=== PATIENT | female | born 1990 | race Caucasian/White ===

== ENCOUNTER 2017-04-10 10:32 | Emergency (ER) | payer OTHER ==
[2017-04-10] MEDS ORDERED: IBUPROFEN 800 MG TAB PO ONE (10:42)
[2017-04-10 10:47] VITALS: BP 115/67; PULSE 86; RESP 18; TEMP 99; O2SAT 97
--- NOTE | 2017-04-10 11:01 | EDPHY ---
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 Denies any falls or traumatic injuries. Has had a persistent bilateral low back pain since. No numbness or weakness. No difficulty ambulating. No urinary problems. History of prior back injuries. ROS: 10 point Review of Systems is negative except as noted in the HPI. PMH: Denies Social History: No smoking, no alcohol, no recreational drug use Family History: non-contributory Physical Exam: Gen: Awake, Alert, No Distress HEENT: Nose: no rhinorrhea Eyes: PERRLA, EOMI Mouth: Moist mucosa Neck: Supple, no JVD Chest: nontender, lungs clear to auscultation Heart: S1, S2 normal, no murmur Abd: Soft, non-tender, no guarding Back: no CVA tenderness, no midline tenderness bilateral paraspinal muscle spasm Ext: no edema, non-tender Skin: no rash Neuro: CN II-XII intact, Sensation grossly intact, Strength 5/5 in bilateral upper and lower extremities, 2+ deep tendon reflexes - Personal History LMP (Females 10-55): Now Current Tetanus/Diphtheria Vaccine: Yes - Medical/Surgical History Hx Asthma: No Hx Chronic Respiratory Disease: No Hx Diabetes: No Hx Cardiac Disease: No Hx Renal Disease: No Hx Cirrhosis: No Hx Alcoholism: No Hx HIV/AIDS: No Hx Splenectomy or Spleen Trauma: No - Social History Smoking Status: Never smoked Constitutional: Initial Vital Signs Temperature (C) 37.2 C 04/10/17 10:36 Heart Rate 86 04/10/17 10:36 Respiratory Rate 18 04/10/17 10:36 Blood Pressure 115/67 04/10/17 10:36 O2 Sat (%) 97 04/10/17 10:36 O2 Delivery Mode Room Air Allergies/Adverse Reactions: acetaminophen Allergy (Verified 04/10/17 10:40) erythromycin base Allergy (Verified 04/10/17 10:40) Home Medications: Medication Instructions Recorded NK [No Known Home Meds] 04/10/17 Medical Decision Making ED Course/Re-evaluation: 27-year-old with musculoskeletal low back pain. No red flags for acute neurologic injury or infection. Will discharge with NSAIDs, back exercises, ice , follow up with workman's Comp. - Data Points Medications Given: Discontinued Medications Ibuprofen (Motrin) 800 mg PO EDNOW ONE Stop: 04/10/17 10:43 Last Admin: 04/10/17 10:45 Dose: 800 mg Departure - Departure Disposition: Home, Routine, Self-Care Clinical Impression: Low back strain Condition: Good Instructions: Low Back Strain (ED), Lower Back Exercises (ED), Core Strengthening Exercises (ED) Additional Instructions: Take ibuprofen, 600 mg, 3 times a day. You may also take acetaminophen, 1000 mg every 6 hours. Make sure to remain active. Did do not lay in bed or sit in a chair for long periods. It is important to remain active and keep your back moving in order to improve. Please see the attached back exercise instructions. Follow up with workman's Comp doctor in 2-3 days for re-evaluation. Referrals: [facility] [Other] - As per Instructions Work Comp Referral [facility] [place]] - As per Instructions
--- NOTE | 2017-04-10 11:01 | EDPHY ---
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 Denies any falls or traumatic injuries. Has had a persistent bilateral low back pain since. No numbness or weakness. No difficulty ambulating. No urinary problems. History of prior back injuries. ROS: 10 point Review of Systems is negative except as noted in the HPI. PMH: Denies Social History: No smoking, no alcohol, no recreational drug use Family History: non-contributory Physical Exam: Gen: Awake, Alert, No Distress HEENT: Nose: no rhinorrhea Eyes: PERRLA, EOMI Mouth: Moist mucosa Neck: Supple, no JVD Chest: nontender, lungs clear to auscultation Heart: S1, S2 normal, no murmur Abd: Soft, non-tender, no guarding Back: no CVA tenderness, no midline tenderness bilateral paraspinal muscle spasm Ext: no edema, non-tender Skin: no rash Neuro: CN II-XII intact, Sensation grossly intact, Strength 5/5 in bilateral upper and lower extremities, 2+ deep tendon reflexes - Personal History LMP (Females 10-55): Now Current Tetanus/Diphtheria Vaccine: Yes - Medical/Surgical History Hx Asthma: No Hx Chronic Respiratory Disease: No Hx Diabetes: No Hx Cardiac Disease: No Hx Renal Disease: No Hx Cirrhosis: No Hx Alcoholism: No Hx HIV/AIDS: No Hx Splenectomy or Spleen Trauma: No - Social History Smoking Status: Never smoked Constitutional: Initial Vital Signs Temperature (C) 37.2 C 04/10/17 10:36 Heart Rate 86 04/10/17 10:36 Respiratory Rate 18 04/10/17 10:36 Blood Pressure 115/67 04/10/17 10:36 O2 Sat (%) 97 04/10/17 10:36 O2 Delivery Mode Room Air Allergies/Adverse Reactions: acetaminophen Allergy (Verified 04/10/17 10:40) erythromycin base Allergy (Verified 04/10/17 10:40) Home Medications: Medication Instructions Recorded NK [No Known Home Meds] 04/10/17 Medical Decision Making ED Course/Re-evaluation: 27-year-old with musculoskeletal low back pain. No red flags for acute neurologic injury or infection. Will discharge with NSAIDs, back exercises, ice , follow up with workman's Comp. - Data Points Medications Given: Discontinued Medications Ibuprofen (Motrin) 800 mg PO EDNOW ONE Stop: 04/10/17 10:43 Last Admin: 04/10/17 10:45 Dose: 800 mg Departure - Departure Disposition: Home, Routine, Self-Care Clinical Impression: Low back strain Condition: Good Instructions: Low Back Strain (ED), Lower Back Exercises (ED), Core Strengthening Exercises (ED) Additional Instructions: Take ibuprofen, 600 mg, 3 times a day. You may also take acetaminophen, 1000 mg every 6 hours. Make sure to remain active. Did do not lay in bed or sit in a chair for long periods. It is important to remain active and keep your back moving in order to improve. Please see the attached back exercise instructions. Follow up with workman's Comp doctor in 2-3 days for re-evaluation. Referrals: [facility] [Other] - As per Instructions Work Comp Referral [facility] [place] [Outside] - As per Instructions
--- NOTE | 2017-04-10 11:01 | EDPHY ---
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 Denies any falls or traumatic injuries. Has had a persistent bilateral low back pain since. No numbness or weakness. No difficulty ambulating. No urinary problems. History of prior back injuries. ROS: 10 point Review of Systems is negative except as noted in the HPI. PMH: Denies Social History: No smoking, no alcohol, no recreational drug use Family History: non-contributory Physical Exam: Gen: Awake, Alert, No Distress HEENT: Nose: no rhinorrhea Eyes: PERRLA, EOMI Mouth: Moist mucosa Neck: Supple, no JVD Chest: nontender, lungs clear to auscultation Heart: S1, S2 normal, no murmur Abd: Soft, non-tender, no guarding Back: no CVA tenderness, no midline tenderness bilateral paraspinal muscle spasm Ext: no edema, non-tender Skin: no rash Neuro: CN II-XII intact, Sensation grossly intact, Strength 5/5 in bilateral upper and lower extremities, 2+ deep tendon reflexes - Personal History LMP (Females 10-55): Now Current Tetanus/Diphtheria Vaccine: Yes - Medical/Surgical History Hx Asthma: No Hx Chronic Respiratory Disease: No Hx Diabetes: No Hx Cardiac Disease: No Hx Renal Disease: No Hx Cirrhosis: No Hx Alcoholism: No Hx HIV/AIDS: No Hx Splenectomy or Spleen Trauma: No - Social History Smoking Status: Never smoked Constitutional: Initial Vital Signs Temperature (C) 37.2 C 04/10/17 10:36 Heart Rate 86 04/10/17 10:36 Respiratory Rate 18 04/10/17 10:36 Blood Pressure 115/67 04/10/17 10:36 O2 Sat (%) 97 04/10/17 10:36 O2 Delivery Mode Room Air Allergies/Adverse Reactions: acetaminophen Allergy (Verified 04/10/17 10:40) erythromycin base Allergy (Verified 04/10/17 10:40) Home Medications: Medication Instructions Recorded NK [No Known Home Meds] 04/10/17 Medical Decision Making ED Course/Re-evaluation: 27-year-old with musculoskeletal low back pain. No red flags for acute neurologic injury or infection. Will discharge with NSAIDs, back exercises, ice , follow up with workman's Comp. - Data Points Medications Given: Discontinued Medications Ibuprofen (Motrin) 800 mg PO EDNOW ONE Stop: 04/10/17 10:43 Last Admin: 04/10/17 10:45 Dose: 800 mg Departure - Departure Disposition: Home, Routine, Self-Care Clinical Impression: Low back strain Condition: Good Instructions: Low Back Strain (ED), Lower Back Exercises (ED), Core Strengthening Exercises (ED) Additional Instructions: Take ibuprofen, 600 mg, 3 times a day. You may also take acetaminophen, 1000 mg every 6 hours. Make sure to remain active. Did do not lay in bed or sit in a chair for long periods. It is important to remain active and keep your back moving in order to improve. Please see the attached back exercise instructions. Follow up with workman's Comp doctor in 2-3 days for re-evaluation. Referrals: [facility] [Other] - As per Instructions Work Comp Referral [facility] [place] [Outside] - As per Instructions
== END 2017-04-10 11:10 | disposition home or self-care (01) ==
LOC: CED 10:32
DX: S39.012A Strain of muscle, fascia and tendon of lower back, initial encounter (principal); X58.XXXA Exposure to other specified factors, initial encounter

== ENCOUNTER 2017-05-25 14:17 | Emergency (ER) | payer SELFPAY ==
[2017-05-25] MEDS ORDERED: ONDANSETRON 4 MG/2 ML VIAL IVP ONE ×2 (14:25→15:15)
[2017-05-25] MEDS ORDERED: NS 1,000 ML IV ONE (14:25)
[2017-05-25 14:29] VITALS: RESP 18; TEMP 99.1
--- NOTE | 2017-05-25 14:46 | EDPHY ---
H & P Stated Complaint: n/v/d since yesterday, fever high of 101f Source: Patient Exam Limitations: No limitations - Personal History LMP (Females 10-55): Over 28 Days Ago - Medical/Surgical History Hx Asthma: No Hx Chronic Respiratory Disease: No Hx Diabetes: No Hx Cardiac Disease: No Hx Renal Disease: No Hx Cirrhosis: No Hx Alcoholism: No Hx HIV/AIDS: No Hx Splenectomy or Spleen Trauma: No Other PMH: marriage april 2017, heart murmur - Social History Smoking Status: Never smoked Alcohol Use: Rarely Drug Use: None Time Seen by Provider: 05/25/17 14:25 HPI/ROS: This patient complains of vomiting and loose stools. She explains that yesterday morning she developed vomiting and had a few episodes. She is still able the sip some fluids but was not able tolerate solid foods. By the afternoon she had also developed loose stools with 2 episodes of diarrhea described as watery. Today she has ongoing nausea and vomiting-laps episode of vomiting this morning but ongoing nausea. No stools today. Yesterday she had fever to 101 but no fevers today. She reports associated upper belly cramping discomfort of mild intensity. Peak intensity of her belly cramping was 5/10 intensity, but currently it is less than that. She drove herself by private vehicle here for evaluation of her symptoms. ROS: Fevers but no rigors or fatigue. HEENT: She denies URI symptoms. No sore throat. Pulmonary: She reports a mild intermittent dry cough over the past week. No pleuritic pain. No dyspnea. Cardiovascular: No chest pain or heart palpitations. No lightheadedness. GI: No abdominal bloating. No hemoptysis complete review of symptoms otherwise negative or bloody stools. No coffee-ground emesis or coffee-ground stools. : Last menstrual period-miscarriage early in 1st trimester 1 month ago treated at [facility]. This occurred spontaneously with an ultrasound revealing no retained products of conception or other abnormalities. She is no longer having any symptoms. No dysuria, no frequency urgency. No vaginal bleeding. 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 No and her family is currently ill. No suspect food ingestion (Sanya Argueta) - Physical Exam Exam: Vital signs are normal General Appearance: Alert, no distress. Eyes: Pupils equal and round no pallor or injection. ENT, Mouth: Mucous membranes moist. Respiratory: There are no retractions, lungs are clear to auscultation. Cardiovascular: Regular rate and rhythm. The patient has a 2/6 holosystolic murmur. Gastrointestinal: Normoactive, soft, very minimal epigastric tenderness with no guarding or rebound. No right upper quadrant tenderness. No organomegaly. Back: Mild left CVA tenderness. Otherwise normal Neurological: GCS of 15 Skin: Warm and dry, no rashes. Extremities are symmetrical, full range of motion. Psychiatric: Mood and affect are normal DIFFERENTIAL DIAGNOSIS: After history and physical exam differential diagnosis was considered for viral gastroenteritis, food poisoning, dehydration, , UTI (Sanya Argueta) Constitutional: Initial Vital Signs Temperature (C) 37.3 C 05/25/17 14:25 Heart Rate 92 05/25/17 14:25 Respiratory Rate 18 05/25/17 14:25 Blood Pressure 121/77 H 05/25/17 14:25 O2 Sat (%) 96 05/25/17 14:25 O2 Delivery Mode Room Air Allergies/Adverse Reactions: acetaminophen Allergy (Verified 05/25/17 14:25) erythromycin base Allergy (Verified 05/25/17 14:25) Home Medications: Medication Instructions Recorded Ondansetron Odt [Zofran Odt 4 mg 4 mg PO Q6 PRN #8 tab 05/25/17 (RX)] Ondansetron Odt [Zofran Odt] 4 - 8 mg PO Q4PRN PRN #4 tab 05/25/17 Medical Decision Making ED Course/Re-evaluation: IV normal saline bolus Zofran 4 mg IV Discussion: Patient presents with findings most consistent with viral gastroenteritis with mild dehydration. Will obtain a UA given left CVA tenderness. Patient has benign belly exam with no current concerning clinical findings and normal vital signs. I discussed this case with Dr. Mary Briones, [facility] emergency physician at 3: 00 p.m. with lab results pending and results of antiemetic pending. (Argueta, Sanya C) Differential Diagnosis: Differential diagnosis of the patient's nausea and vomiting was considered including but not limited to gastroenteritis, gastritis, alcohol intoxication, withdrawal symptoms, intraabdominal processes including appendicitis, pancreatitis, bowel obstruction and medication side effect. (Mary Briones) Other Provider: I assumed care of this patient at 3:00 p.m., change of shift. She is receiving IV fluids. Chemistries are unremarkable in the patient is not . Patient was seen and examined by myself at 3:15 a.m.. She reports her nausea has improved significantly although she still has residual nausea. She has received 700 cc of fluid. She tells me that she would like to be discharged as soon as possible, and would like to try some p.o. fluids. Patient received an additional 4 mg of Zofran and was started on ice chips. Patient tolerated p.o. fluids. She has not provided a urine sample yet but reports that she has no urinary complaints and like to be discharged home. She was given a prescription for Zofran and instructed regarding a bland diet until she is feeling improved. (Mary Briones) - Data Points Laboratory Results: Laboratory Results 05/25/17 14:33 Medications Given: Discontinued Medications Sodium Chloride (Ns) 1,000 mls @ 0 mls/hr IV EDNOW ONE; Wide Open PRN Reason: Protocol Stop: 05/25/17 14:26 Last Admin: 05/25/17 14:42 Dose: 1,000 mls Ondansetron HCl (Zofran) 4 mg IVP EDNOW ONE Stop: 05/25/17 14:26 Last Admin: 05/25/17 14:43 Dose: 4 mg Ondansetron HCl (Zofran) 4 mg IVP EDNOW ONE Stop: 05/25/17 15:16 Last Admin: 05/25/17 15:18 Dose: 4 mg Departure - Departure Disposition: Home, Routine, Self-Care Clinical Impression: Gastroenteritis, Dehydration Condition: Good Instructions: Gastroenteritis (ED) Additional Instructions: Diagnosis: Viral gastroenteritis Plan: Drink plenty fluids Light diet until he feel improved Zofran for nausea vomiting Imodium if needed for loose stools No work over the next 2 days. Return for any significant worsening despite the treatment plan Follow up with primary care physician (Dr. Peguero if you don't have one) for any ongoing symptoms despite the treatment plan. Referrals: NONE *PRIMARY CARE P,. [Primary Care Provider] - As per Instructions Cher Peguero MD [[facility] [place] - As per Instructions Stand Alone Forms: Work Excuse Prescriptions: Ondansetron Odt [Zofran Odt] 4 - 8 mg PO Q4PRN PRN #4 tab PRN Reason: Vomiting Ondansetron Odt [Zofran Odt 4 mg (RX)] 4 mg PO Q6 PRN #8 tab PRN Reason: Nausea
[2017-05-25 14:52] LABS: ANION GAP 14 mEq/L (8-16); CALCIUM 9.3 mg/dL (8.5-10.4); CARBON DIOXIDE 24 mEq/l (22-31); CHLORIDE 104 mEq/L (97-110); CREATININE 0.7 mg/dL (0.6-1.0); GLOMERULAR FILTRATION RATE > 60; GLUCOSE 99 mg/dL (70-100); POTASSIUM 3.8 mEq/L (3.5-5.2); SODIUM 142 mEq/L (134-144)
[2017-05-25 15:54] VITALS: BP 124/71; PULSE 82; O2SAT 97
== END 2017-05-25 15:52 | disposition home or self-care (01) ==
LOC: CED 14:17
DX: K52.9 Noninfective gastroenteritis and colitis, unspecified (principal); E86.0 Dehydration; E86.9 Volume depletion, unspecified
CPT/HCPCS: 80048-PO; 84703-PO; 96374; J2405